=== PATIENT | male | born 2000 | race African-American/Black ===

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

== ENCOUNTER → 2020-02-23 | Outpatient (REF) | payer OTHER, MEDICAID ==
[~2020-02-23] MED LIST: IBUP-1022 PO
== END ==
LOC: M SFHCLERA 17:41
PROVIDERS: ATTEND Student in an Organized Health Care Education/Training Program
DX: A74.9 Chlamydial infection, unspecified (principal)

== ENCOUNTER 2020-02-25 05:09 | Emergency (ER) | payer OTHER, MEDICAID ==
[~2020-02-25] VITALS: Ht 185.4 cm; Wt 81.8 kg
[2020-02-25] MEDS ORDERED: diphenhydrAMINE 50MG/ML VIAL (J1200) As Ordered ONE (05:20)
[2020-02-25] MEDS ORDERED: LORazepam 2 MG/ML VIAL IM ONE (05:30)
[2020-02-25] MEDS ORDERED: diphenhydrAMINE 50MG/ML VIAL (J1200) IM ONE (05:30)
[2020-02-25] MEDS ORDERED: NS 1,000 ML IV ONE (05:30)
[2020-02-25] MEDS ORDERED: HALOPERIDOL 5MG/ML VIAL (J1630 PER 1) IM ONE (05:30)
[2020-02-25 05:44] LABS: BASO # 0.1 10^3/uL (0.0-0.2); EOS # 0.2 10^3/uL (0.0-0.5); EOS % 1.4 % (0.0-3.0); HEMATOCRIT 46.8 % (42.0-52.0); HEMOGLOBIN 15.2 g/dl (13.5-17.5); LYMPH # 3.2 10^3/uL (1.5-5.0); LYMPH % 28.2 % (24.0-44.0); MEAN CORPUSCULAR HEMOGLOBIN 30.3 pg (27.0-33.0); MEAN CORPUSCULAR HGB CONC 32.5 g/dl (32.0-36.5); MEAN CORPUSCULAR VOLUME 93.4 fl (80.0-96.0); MONO # 0.7 10^3/uL (0.0-0.8); MONO % 5.7 % (0.0-5.0); NEUTROPHILS # 7.3 10^3/uL (1.5-8.5); NEUTROPHILS % 63.4 % (36.0-66.0); PLATELET COUNT, AUTOMATED 334 10^3/uL (150-450); RED BLOOD COUNT 5.01 10^6/uL (4.30-6.10); WHITE BLOOD COUNT 11.5 10^3/uL (4.0-10.0)
[2020-02-25] MEDS ORDERED: LORazepam 2 MG/ML VIAL IV STA (05:46)
[2020-02-25 06:04] LABS: AMPHETAMINES LEVEL URINE NEGATIVE (NEGATIVE); BARBITURATES URINE NEGATIVE (NEGATIVE); BENZODIAZEPINES URINE NEGATIVE (NEGATIVE); CANNABINOIDS URINE POSITIVE (NEGATIVE); COCAINE METABOLITE URINE NEGATIVE (NEGATIVE); METHADONE URINE NEGATIVE (NEGATIVE); OPIATES URINE NEGATIVE (NEGATIVE); PHENCYCLIDINE URINE NEGATIVE (NEGATIVE)
[2020-02-25 06:17] LABS: ACETAMINOPHEN LEVEL < 2.0 UG/ML (10.0-30.0); ALBUMIN 4.6 GM/DL (3.2-5.2); ALT/SGPT 17 U/L (12-78); BILIRUBIN,DIRECT < 0.1 MG/DL (0.0-0.2); BILIRUBIN,TOTAL 0.2 MG/DL (0.2-1.0); BLOOD UREA NITROGEN 14 MG/DL (7-18); CALCIUM LEVEL 9.3 MG/DL (8.5-10.1); CARBON DIOXIDE LEVEL 24 MEQ/L (21-32); CHLORIDE LEVEL 107 MEQ/L (98-107); CPK CREATINE PHOSPHOKINASE 238 U/L (39-308); ETHYL ALCOHOL (ETHANOL) < 0.003 % (0.000-0.010); GLUCOSE, FASTING 118 MG/DL (70-100); POTASSIUM SERUM 3.8 MEQ/L (3.5-5.1); SALICYLATE LEVEL 2.2 MG/DL (5.0-30.0); SODIUM LEVEL 141 MEQ/L (136-145); TOTAL PROTEIN 8.1 GM/DL (6.4-8.2)
[2020-02-25] MEDS ORDERED: D5W/0.45% SODIUM CHLORIDE 1,000 ML IV ONE (09:15)
[2020-02-25 17:10] VITALS: BP 137/60
--- NOTE | 2020-02-27 08:55 | ECGEPIP ---
[facility] - ED Test Date: 2020-02-25 Pat Name: ALEYDA GUSTAFSON Department: Room: - Gender: Male Senior Product Designer: : 2000 Requested By: CHANTAL Plummer Order Number: [id number] Reading MD: Sophia Greenberg Measurements Intervals [place] Rate: 97 P: 64 CT: 155 QRS: 79 QRSD: 97 T: 50 QT: 342 QTc: 436 Interpretive Statements SINUS RHYTHM NSTTW abnormalities No prior Electronically Signed on 02-27-2020 8:54:52 EDT by Sophia Greenberg
== END 2020-02-25 17:24 | disposition home or self-care (01) ==
LOC: M ED 05:09
DX: R41.82 Altered mental status, unspecified (principal); F19.10 Other psychoactive substance abuse, uncomplicated; F12.10 Cannabis abuse, uncomplicated
CPT/HCPCS: 36600; 51701; 80048; 80076; 80307; 82550; 82803; 84443; 85025; 93005; 93041; 94760; 96361; 96372; 96374; 99285; G0480; J1200; J1630; J2060

== ENCOUNTER 2020-03-01 20:11 | Emergency (ER) | payer MEDICAID, OTHER ==
[~2020-03-01] VITALS: Ht 182.9 cm; Wt 72.8 kg
[2020-03-01 20:16] VITALS: BP 126/77
== END 2020-03-01 21:34 | disposition home or self-care (01) ==
LOC: M ED 20:11
DX: F19.20 Other psychoactive substance dependence, uncomplicated (principal); Z72.820 Sleep deprivation

== ENCOUNTER 2020-05-07 12:23 | Emergency (ER) | payer OTHER ==
[~2020-05-07] VITALS: Ht 182.9 cm; Wt 77.6 kg
--- NOTE | 2020-05-07 15:38 | REP ---
INDICATION: LUE pain/bruising around injection site COMPARISON: None. TECHNIQUE: Tsang scale and color Doppler evaluation the left upper extremity using linear high frequency transducer. FINDINGS: Ultrasound examination of the left upper extremity including visualized jugular, subclavian, axillary, brachial, basilic, and cephalic veins demonstrate normal flow characteristics without evidence for deep venous thrombosis. IMPRESSION: No evidence for deep venous thrombosis. <Electronically signed by Oni Jaimes > 05/07/20 1532
--- NOTE | 2020-05-07 15:40 | REP ---
INDICATION: LUE pain around injection site COMPARISON: None TECHNIQUE: Real time cortés scale and color B-mode ultrasound examination using linear high-frequency transducer. FINDINGS: Ultrasound examination of the left forearm at the site of injection demonstrates normal subcutaneous tissues without abnormal fluid collection or further abnormality by ultrasound. IMPRESSION: No obvious abnormality by sonographic evaluation. <Electronically signed by Oni Jaimes > 05/07/20 1533
[2020-05-07 16:19] LABS: HEPATITIS A ANTIBODY IGM NEGATIVE (NEGATIVE); HEPATITIS B CORE ANTIBODY IGM NEGATIVE (NEGATIVE); HEPATITIS B SURFACE ANTIGEN NEGATIVE (NEGATIVE); HEPATITIS C VIRUS ABY INDEX 0.1 INDEX (<0.8); HIV 1&2 SCREEN CENTAUR NEGATIVE (NEGATIVE)
[2020-05-07 16:23] VITALS: BP 144/69
== END 2020-05-07 16:24 | disposition home or self-care (01) ==
LOC: M ED 12:23
DX: R22.32 Localized swelling, mass and lump, left upper limb (principal); F19.10 Other psychoactive substance abuse, uncomplicated; F17.200 Nicotine dependence, unspecified, uncomplicated